=== PATIENT | female | born 1970 | race Caucasian/White ===

== ENCOUNTER 2016-08-08 15:04 | Observation (INO) | payer OTHER, SELFPAY ==
[~2016-08-08 15:04] MED LIST: ABILIFY5 MG PO; ALEVE220 M3 PO; AMITRIPTYLINE H25 M1 PO; ASPIRIN81 M1 PO; BCP; CIPRO250 M2 PO; CLONAZEPAM1 M1 PO; CLONAZEPAM2 M1 PO; ELAVIL100 MG PO; GLIPIZIDE XL10 M1 PO; GLIPIZIDE XL10 MG PO; GLUCOPHAGE1000 M1 PO; HUMALOG100 UNITS/ SC; HUMULIN 70/30 V10 ML SQ; HUMULIN R100 UNITS/ SC; KEFLEX500 M4 PO; KLONOPIN1 MG PO; LANTUS100 UNITS/ SC; LEVAQUIN250 M3 PO; LEVAQUIN500 M1 PO; LISINOPRIL-HCT1 EAC1 PO; LISINOPRIL10 M1 PO; LISINOPRIL20 MG PO; LOPRESSOR100 M1 PO; LOPRESSOR100 MG PO; LORTAB 7.5/5001 TAB PO; METFORMIN HCL500 MG PO; NORCO 5/3251 TAB PO; NOVOLIN R100 UNIT/1 SC; PROVERA10 M1 PO; PROZAC20 M2 PO; PROZAC40 M1 PO; TRAMADOL HCL100 M1 PO; TRAMADOL HCL50 MG PO; ULTRAM ER100 MG PO; ZESTORETIC 20-1 EAC2 PO; ZESTORETIC 20-1 EAC4 PO; ZOFRAN4 M2 PO
[2016-08-08] MEDS ORDERED: NOVOLOG MI100 UNITS/ SC ×2 (15:17)
[2016-08-08 15:38] LABS: BASO % 0.1 % (0-2); EOS % 1.7 % (0-7); EOSINOPHIL ABSOLUTE COUNT 0.1 tho/cmm (0.0-0.7); HCT-HEMATOCRIT 37.6 % (34.0-49.0); HGB-HEMOGLOBIN 13.1 gm/dl (12.0-15.5); IMMATURE GRANULOCYTES ABSOLUTE 0.01 tho/cmm (0-0.03); IMMATURE GRANULOCYTES PERCENT 0.1 % (0-0.3); LYMPH % 23.7 % (20-45); LYMPH ABSOLUTE COUNT 1.7 tho/cmm (0.8-4.5); MCH (MEAN CORPUSCULAR HGB) 30.5 pg (28.0-32.0); MCHC MEAN CORPUSCULAR HGB CONC 34.8 % (32.0-36.0); MCV (MEAN CELL VOLUME) 87.4 fl (82.0-96.0); MEAN PLATELET VOLUME 9.3 cmc (9.4-12.4); MONO % 9.8 % (0-12); MONOCYTE ABSOLUTE COUNT 0.7 tho/cmm (0.0-1.2); NEUTROPHIL ABSOLUTE COUNT 4.6 tho/cmm (1.6-8.0); NEUTROPHIL-AUTOMATED 4.6 tho/cmm (1.6-8.0); NEUTROPHILS % 64.6 % (40-80); PLATELET COUNT 276 tho/cmm (150-450); RED CELL DISTRIBUTION WIDTH 12.5 % (12.4-16.4); WHITE BLOOD COUNT 7.1 tho/cmm (4.0-10.0)
[2016-08-08 15:52] LABS: ANION GAP 11 mmol/L (0-20); BLOOD UREA NITROGEN 20 mg/dl (6-24); CALCIUM 8.3 mg/dl (8.5-10.5); CARBON DIOXIDE-VENOUS 24 mmol/L (22-32); CHLORIDE 110 mmol/l (96-110); CREATININE 1.28 mg/dl (0.50-1.10); GLUCOSE 214 mg/dL (70-110); SODIUM 141 mmol/L (135-145); eGFR VALUE FOR BLACK 59 mL/Min
[2016-08-08 15:53] LABS: POTASSIUM 3.7 mmol/L (3.7-5.1)
[2016-08-08] MEDS ORDERED: MEDROXYPRO150 MG/11 IM (15:59)
[2016-08-08] MEDS ORDERED: NEURONTIN300 M1 PO (16:12)
[2016-08-08] MEDS ORDERED: ABILIFY10 M1 PO (16:26)
[2016-08-08 16:33] LABS: ALBUMIN 3.6 g/dl (3.5-5.0); ALKALINE PHOSPHATASE 97 U/L (33-138); ALT/SGPT 18 U/L (12-78); BILIRUBIN,DIRECT <0.1 mg/dl (0.0-0.3); BILIRUBIN,INDIRECT 0.1 mg/dL (0.0-1.0); BILIRUBIN,TOTAL 0.2 mg/dl (0-1.5); LIPASE 172 U/L (73-393)
[2016-08-08 16:36] LABS: AST/SGOT 20 U/L (10-40)
[2016-08-09] MEDS ORDERED: LISINOPRIL-HCT1 EAC1 PO (07:23)
[2016-11-29] MEDS ORDERED: CYCLOBENZAPRINE5 M1 PO (18:44)
[2016-11-29] MEDS ORDERED: NORCO 5-325 TA1 EACH PO (18:44)
[2016-12-16] MEDS ORDERED: INVOKAMET XR 51 EAC1 PO (11:12)
[2016-12-16] MEDS ORDERED: DIABETIC MED (13:05)
[2016-12-16] MEDS ORDERED: TRULICITY0.75 MG/0. SC (13:05)
[2016-12-18] MEDS ORDERED: ZOFRAN4 M2 PO/SL (12:45)
[2016-12-20] MEDS ORDERED: TRADJENTA5 M1 PO (04:17)
[2016-12-20] MEDS ORDERED: LANTUS100 UNITS/ SC (04:18)
== END 2016-08-09 15:20 ==
LOC: EDMED 15:04 → EMR2 20:31 → CAR1 22:39
PROVIDERS: Emergency Medicine; ADMIT Internal Medicine Cardiovascular Disease
DX: R07.9 Chest pain, unspecified (principal); I10 Essential (primary) hypertension; E78.5 Hyperlipidemia, unspecified; E11.40 Type 2 diabetes mellitus with diabetic neuropathy, unspecified; Z79.4 Long term (current) use of insulin; Z79.899 Other long term (current) drug therapy; Z88.5 Allergy status to narcotic agent; Z82.49 Family history of ischemic heart disease and other diseases of the circulatory system; Z83.3 Family history of diabetes mellitus; Z90.49 Acquired absence of other specified parts of digestive tract; Z98.1 Arthrodesis status
CPT/HCPCS: A9500; G0378; J1170; J1815; J2785

== ENCOUNTER 2016-09-26 14:59 | Emergency (ER) | payer OTHER ==
[~2016-09-26 14:59] MED LIST changes: +ABILIFY10 M1 PO; +MEDROXYPRO150 MG/11 IM; +NEURONTIN300 M1 PO; +NOVOLOG MI100 UNITS/ SC
[2016-09-26] MEDS ORDERED: GLUCOPHAGE1000 M1 PO (16:00)
[2016-09-26 16:31] LABS: KETONE-BETA (WHOLE BLOOD) 0.4 mmol/L (0.0-0.6)
[2016-09-26 16:38] LABS: BASO % 0.3 % (0-2); EOS % 1.4 % (0-7); EOSINOPHIL ABSOLUTE COUNT 0.1 tho/cmm (0.0-0.7); HCT-HEMATOCRIT 37.8 % (34.0-49.0); HGB-HEMOGLOBIN 13.6 gm/dl (12.0-15.5); IMMATURE GRANULOCYTES ABSOLUTE 0.02 tho/cmm (0-0.03); IMMATURE GRANULOCYTES PERCENT 0.3 % (0-0.3); LYMPH % 22.3 % (20-45); LYMPH ABSOLUTE COUNT 1.5 tho/cmm (0.8-4.5); MCH (MEAN CORPUSCULAR HGB) 30.5 pg (28.0-32.0); MCV (MEAN CELL VOLUME) 84.8 fl (82.0-96.0); MEAN PLATELET VOLUME 9.6 cmc (9.4-12.4); MONO % 8.8 % (0-12); MONOCYTE ABSOLUTE COUNT 0.6 tho/cmm (0.0-1.2); NEUTROPHIL ABSOLUTE COUNT 4.4 tho/cmm (1.6-8.0); NEUTROPHIL-AUTOMATED 4.4 tho/cmm (1.6-8.0); NEUTROPHILS % 66.9 % (40-80); PLATELET COUNT 239 tho/cmm (150-450); RED BLOOD COUNT 4.46 mil/cmm (4.00-5.20); RED CELL DISTRIBUTION WIDTH 12.3 % (12.4-16.4); WHITE BLOOD COUNT 6.6 tho/cmm (4.0-10.0)
[2016-09-26 16:44] LABS: ANION GAP 17 mmol/L (0-20); BLOOD UREA NITROGEN 25 mg/dl (6-24); CARBON DIOXIDE-VENOUS 21 mmol/L (22-32); CHLORIDE 103 mmol/l (96-110); CREATININE 1.16 mg/dl (0.50-1.10); GLUCOSE 420 mg/dL (70-110); SODIUM 137 mmol/L (135-145); eGFR VALUE FOR BLACK 66 mL/Min
[2016-09-26 16:45] LABS: POTASSIUM 3.7 mmol/L (3.7-5.1)
[2016-09-26 17:34] LABS: URINE APPEARANCE CLEAR; URINE BILIRUBIN NEGATIVE (NEG); URINE BLOOD SMALL (NEG); URINE COLOR YELLOW; URINE GLUCOSE (UA) LARGE (NEG); URINE KETONE MODERATE (NEG); URINE LEUKOCYTE ESTERASE POSITIVE (NEG); URINE NITRITE NEGATIVE (NEG); URINE PROTEIN NEGATIVE (NEG); URINE SPECIFIC GRAVITY 1.015 (1.003-1.030)
[2016-09-26 17:41] LABS: URINE BACTERIA 1+; URINE EPITHELIAL CELLS 0-2 /[HPF] (0-10)
[2016-09-26] MEDS ORDERED: KEFLEX500 M4 PO (19:26)
[2016-11-29] MEDS ORDERED: NORCO 5-325 TA1 EACH PO (18:44)
[2016-11-29] MEDS ORDERED: CYCLOBENZAPRINE5 M1 PO (18:44)
[2016-12-16] MEDS ORDERED: INVOKAMET XR 51 EAC1 PO (11:12)
[2016-12-16] MEDS ORDERED: DIABETIC MED (13:05)
[2016-12-16] MEDS ORDERED: TRULICITY0.75 MG/0. SC (13:05)
[2016-12-18] MEDS ORDERED: ZOFRAN4 M2 PO/SL (12:45)
[2016-12-20] MEDS ORDERED: TRADJENTA5 M1 PO (04:17)
[2016-12-20] MEDS ORDERED: LANTUS100 UNITS/ SC (04:18)
[2017-02-14] MEDS ORDERED: HUMALOG100 UNITS/ SC (06:20)
[2017-02-14] MEDS ORDERED: COMPAZINE10 MG PO (09:07)
== END 2016-09-26 19:29 ==
LOC: EDMED 14:59
PROVIDERS: Emergency Medicine
DX: N39.0 Urinary tract infection, site not specified (principal); E86.0 Dehydration; E11.65 Type 2 diabetes mellitus with hyperglycemia; I10 Essential (primary) hypertension; Z79.4 Long term (current) use of insulin; Z90.49 Acquired absence of other specified parts of digestive tract
CPT/HCPCS: J1170; J1815; J2405; J7030; Q9967

== ENCOUNTER 2016-10-10 11:03 | Emergency (ER) | payer OTHER ==
[2016-10-10] MEDS ORDERED: [UNRECOGNIZED DRUG - OTHER] (11:23)
[2016-10-10 11:45] LABS: URINE BILIRUBIN MODERATE (NEG); URINE BLOOD LARGE (NEG); URINE GLUCOSE (UA) NEGATIVE (NEG); URINE KETONE LARGE (NEG); URINE LEUKOCYTE ESTERASE POSITIVE (NEG); URINE NITRITE POSITIVE (NEG); URINE PROTEIN LARGE (NEG)
[2016-10-10 11:52] LABS: URINE APPEARANCE CLOUDY; URINE COLOR ORANGE
[2016-10-10 11:59] LABS: URINE WBC FULL FIELD /[HPF] (0-5)
[2016-10-10 12:00] LABS: URINE BACTERIA 4+; URINE MUCUS 2+; URINE RBC 100-120 /[HPF] (0-5)
[2016-10-10] MEDS ORDERED: BACTRIM DS TAB1 EAC2 PO (12:43)
[2016-10-10] MEDS ORDERED: ZOFRAN ODT4 MG PO (12:43)
[2016-11-29] MEDS ORDERED: CYCLOBENZAPRINE5 M1 PO (18:44)
[2016-11-29] MEDS ORDERED: NORCO 5-325 TA1 EACH PO (18:44)
[2016-12-16] MEDS ORDERED: INVOKAMET XR 51 EAC1 PO (11:12)
[2016-12-16] MEDS ORDERED: TRULICITY0.75 MG/0. SC (13:05)
[2016-12-16] MEDS ORDERED: DIABETIC MED (13:05)
[2016-12-18] MEDS ORDERED: ZOFRAN4 M2 PO/SL (12:45)
[2016-12-20] MEDS ORDERED: TRADJENTA5 M1 PO (04:17)
[2016-12-20] MEDS ORDERED: LANTUS100 UNITS/ SC (04:18)
[2017-02-14] MEDS ORDERED: HUMALOG100 UNITS/ SC (06:20)
[2017-02-14] MEDS ORDERED: COMPAZINE10 MG PO (09:07)
== END 2016-10-10 13:00 ==
LOC: EDMED 11:03
PROVIDERS: Nurse Practitioner Family
DX: N39.0 Urinary tract infection, site not specified (principal); E11.9 Type 2 diabetes mellitus without complications; I10 Essential (primary) hypertension; Z88.5 Allergy status to narcotic agent; Z79.4 Long term (current) use of insulin
CPT/HCPCS: J1885

== ENCOUNTER 2016-10-12 09:17 | Observation (INO) | payer OTHER ==
[~2016-10-12 09:17] MED LIST changes: +BACTRIM DS TAB1 EAC2 PO; +ZOFRAN ODT4 MG PO; +[UNRECOGNIZED DRUG - OTHER]
[2016-10-12 11:16] LABS: BASO % 0.5 % (0-2); EOS % 5.3 % (0-7); EOSINOPHIL ABSOLUTE COUNT 0.3 tho/cmm (0.0-0.7); HCT-HEMATOCRIT 40.6 % (34.0-49.0); HGB-HEMOGLOBIN 14.4 gm/dl (12.0-15.5); IMMATURE GRANULOCYTES ABSOLUTE 0.03 tho/cmm (0-0.03); IMMATURE GRANULOCYTES PERCENT 0.5 % (0-0.3); LYMPH % 28.2 % (20-45); LYMPH ABSOLUTE COUNT 1.6 tho/cmm (0.8-4.5); MCH (MEAN CORPUSCULAR HGB) 30.9 pg (28.0-32.0); MCHC MEAN CORPUSCULAR HGB CONC 35.5 % (32.0-36.0); MCV (MEAN CELL VOLUME) 87.1 fl (82.0-96.0); MEAN PLATELET VOLUME 9.5 cmc (9.4-12.4); MONO % 11.8 % (0-12); MONOCYTE ABSOLUTE COUNT 0.7 tho/cmm (0.0-1.2); NEUTROPHIL ABSOLUTE COUNT 3.1 tho/cmm (1.6-8.0); NEUTROPHIL-AUTOMATED 3.1 tho/cmm (1.6-8.0); NEUTROPHILS % 53.7 % (40-80); PLATELET COUNT 284 tho/cmm (150-450); RED BLOOD COUNT 4.66 mil/cmm (4.00-5.20); RED CELL DISTRIBUTION WIDTH 12.5 % (12.4-16.4); WHITE BLOOD COUNT 5.7 tho/cmm (4.0-10.0)
[2016-10-12 11:19] LABS: PREGNANCY-SERUM NEGATIVE (NEGATIVE)
[2016-10-12 11:27] LABS: ALB/GLOB RATIO 0.8 (0.8-2.0); ALBUMIN 3.6 g/dl (3.5-5.0); ALKALINE PHOSPHATASE 88 U/L (33-138); ALT/SGPT 21 U/L (12-78); BILIRUBIN,TOTAL 0.4 mg/dl (0-1.5); BLOOD UREA NITROGEN 14 mg/dl (6-24); CALCIUM 9.3 mg/dl (8.5-10.5); CARBON DIOXIDE-VENOUS 25 mmol/L (22-32); CHLORIDE 104 mmol/l (96-110); GLUCOSE 149 mg/dL (70-110); LIPASE 99 U/L (73-393); SODIUM 137 mmol/L (135-145); eGFR VALUE FOR BLACK 64 mL/Min
[2016-10-12 11:32] LABS: ANION GAP 12 mmol/L (0-20); POTASSIUM 4.3 mmol/L (3.7-5.1)
[2016-10-12 11:33] LABS: AST/SGOT 19 U/L (10-40)
[2016-10-12 11:46] LABS: URINE BILIRUBIN NEGATIVE (NEG); URINE BLOOD LARGE (NEG); URINE GLUCOSE (UA) NEGATIVE (NEG); URINE KETONE SMALL (NEG); URINE LEUKOCYTE ESTERASE POSITIVE (NEG); URINE NITRITE NEGATIVE (NEG); URINE PROTEIN MODERATE (NEG); URINE SPECIFIC GRAVITY 1.025 (1.003-1.030)
[2016-10-12 11:50] LABS: URINE APPEARANCE CLOUDY; URINE COLOR YELLOW
[2016-10-12 11:59] LABS: URINE EPITHELIAL CELLS 20-25 /[HPF] (0-10)
[2016-10-12 12:00] LABS: URINE BACTERIA 2+; URINE RBC 40-50 /[HPF] (0-5); URINE WBC 100-120 /[HPF] (0-5)
[2016-10-12 12:01] LABS: URINE AMORPHOUS 1+; URINE MUCUS 2+
--- NOTE | 2016-10-12 21:12 | NUR ---
VIRTUAL CARE NOTE: PT. SLEEPING ASSESSMENT DEFERRED.
[2016-10-13 05:47] LABS: BASO % 0.5 % (0-2); EOS % 7.4 % (0-7); EOSINOPHIL ABSOLUTE COUNT 0.3 tho/cmm (0.0-0.7); HCT-HEMATOCRIT 33.6 % (34.0-49.0); HGB-HEMOGLOBIN 11.4 gm/dl (12.0-15.5); IMMATURE GRANULOCYTES ABSOLUTE 0.01 tho/cmm (0-0.03); IMMATURE GRANULOCYTES PERCENT 0.3 % (0-0.3); LYMPH % 31.8 % (20-45); LYMPH ABSOLUTE COUNT 1.2 tho/cmm (0.8-4.5); MCH (MEAN CORPUSCULAR HGB) 29.8 pg (28.0-32.0); MCHC MEAN CORPUSCULAR HGB CONC 33.9 % (32.0-36.0); MEAN PLATELET VOLUME 9.1 cmc (9.4-12.4); MONO % 13.2 % (0-12); MONOCYTE ABSOLUTE COUNT 0.5 tho/cmm (0.0-1.2); NEUTROPHIL ABSOLUTE COUNT 1.8 tho/cmm (1.6-8.0); NEUTROPHIL-AUTOMATED 1.8 tho/cmm (1.6-8.0); NEUTROPHILS % 46.8 % (40-80); PLATELET COUNT 227 tho/cmm (150-450); RED BLOOD COUNT 3.82 mil/cmm (4.00-5.20); RED CELL DISTRIBUTION WIDTH 12.4 % (12.4-16.4); WHITE BLOOD COUNT 3.8 tho/cmm (4.0-10.0)
[2016-10-13 06:09] LABS: ANION GAP 13 mmol/L (0-20); BLOOD UREA NITROGEN 13 mg/dl (6-24); CALCIUM 8.2 mg/dl (8.5-10.5); CARBON DIOXIDE-VENOUS 24 mmol/L (22-32); CHLORIDE 110 mmol/l (96-110); CHOLESTEROL 165 mg/dl (120-200); CREATININE 1.01 mg/dl (0.50-1.10); HDL CHOLESTEROL 35 mg/dl (40-60); LDL CHOLESTEROL 98 mg/dl (0-99); POTASSIUM 4.8 mmol/L (3.7-5.1); SODIUM 142 mmol/L (135-145); VLDL 32 mg/dl (0-30); eGFR VALUE FOR BLACK 78 mL/Min
[2016-10-13 06:13] LABS: GLUCOSE 241 mg/dL (70-110); TRIGLYCERIDES 162 mg/dl (<149)
[2016-10-13] MEDS ORDERED: LYRICA100 MG/CAP PO (13:40)
[2016-10-13] MEDS ORDERED: MULTIPLE VITAM1 EAC4 PO (13:40)
[2016-10-13] MEDS ORDERED: ABILIFY10 M1 PO (13:40)
[2016-10-13] MEDS ORDERED: LIPITOR40 M1 PO (13:41)
[2016-10-13] MEDS ORDERED: BACTRIM DS TAB1 EAC2 PO (13:42)
[2016-10-14 05:24] LABS: ANION GAP 9 mmol/L (0-20); BLOOD UREA NITROGEN 14 mg/dl (6-24); CALCIUM 8.2 mg/dl (8.5-10.5); CARBON DIOXIDE-VENOUS 27 mmol/L (22-32); CHLORIDE 109 mmol/l (96-110); CREATININE 0.89 mg/dl (0.50-1.10); GLUCOSE 121 mg/dL (70-110); SODIUM 141 mmol/L (135-145); eGFR VALUE FOR BLACK >90 mL/Min
--- NOTE | 2016-10-14 15:25 | NUR ---
VIRTUAL CARE NOTE: PT SLEEPING. ASSESSMENT DEFERRED. WILL CALL IN LATER IF SHE'S AWAKE AND WILLING TO TALK. ELECTRONIC CHART REVIEWED.
--- NOTE | 2016-10-14 19:53 | NUR ---
MARY/LEADER FLORENTINO-VISITED WITH PATIENT SHE LAY IN BED COMFORTABLE, PAIN CONTROLLED BUT STILL HAVING SOME PAIN IN HER ABD BUT HER BACK IS BETTER. SHE STARTED ON AN ORAL ABX TODAY - OMNICEF-I TOLD HER WE WOULD GIVE HER A PRINTOUT TO EDUCATE HER ON THE SIDE EFFECTS,ETC AND ONCE SHE REVIEWED IT IF SHE HAD QUESTIONS TO PLEASE CALL ME. SHE HOPES TO GO HOME TOMMORROW. HAS NO OTHER QUESTIONS OR CONCERNS AND STATES CARE IS FINE-NO ISSUES.
--- NOTE | 2016-10-15 01:13 | NUR ---
MARY NOTE-PRINTED SONIA CLINICAL EDUCATION OF PYLONEPHRITIS AND ASKED THE BEDSIDE NURSE TO GIVE TO PATIENT.
[2016-10-15] MEDS ORDERED: MIRALAX17 G2 PO (10:48)
[2016-10-15] MEDS ORDERED: CEFDINIR300 M1 PO (10:48)
[2016-10-15] MEDS ORDERED: EXCEDRIN MIGRA1 EAC3 PO (10:49)
[2016-10-15] MEDS ORDERED: STOP THE FOLLOWING: (10:53)
[2016-11-29] MEDS ORDERED: NORCO 5-325 TA1 EACH PO (18:44)
[2016-11-29] MEDS ORDERED: CYCLOBENZAPRINE5 M1 PO (18:44)
[2016-12-16] MEDS ORDERED: INVOKAMET XR 51 EAC1 PO (11:12)
[2016-12-16] MEDS ORDERED: DIABETIC MED (13:05)
[2016-12-16] MEDS ORDERED: TRULICITY0.75 MG/0. SC (13:05)
[2016-12-18] MEDS ORDERED: ZOFRAN4 M2 PO/SL (12:45)
[2016-12-20] MEDS ORDERED: TRADJENTA5 M1 PO (04:17)
[2016-12-20] MEDS ORDERED: LANTUS100 UNITS/ SC (04:18)
[2017-02-14] MEDS ORDERED: HUMALOG100 UNITS/ SC (06:20)
[2017-02-14] MEDS ORDERED: COMPAZINE10 MG PO (09:07)
== END 2016-10-15 14:25 ==
LOC: EDMED 09:17 → EMR2 18:08 → 5WD 18:12
PROVIDERS: Physician Assistant; ADMIT Family Medicine
DX: N10 Acute pyelonephritis (principal); N17.9 Acute kidney failure, unspecified; E11.40 Type 2 diabetes mellitus with diabetic neuropathy, unspecified; I10 Essential (primary) hypertension; E78.5 Hyperlipidemia, unspecified; J45.909 Unspecified asthma, uncomplicated; Z79.4 Long term (current) use of insulin; Z79.82 Long term (current) use of aspirin; Z79.84 Long term (current) use of oral hypoglycemic drugs; Z79.899 Other long term (current) drug therapy; Z88.5 Allergy status to narcotic agent; Z87.442 Personal history of urinary calculi; Z90.49 Acquired absence of other specified parts of digestive tract; Z98.1 Arthrodesis status; Z98.890 Other specified postprocedural states
CPT/HCPCS: G0378; J0696; J1170; J1650; J1815; J1885; J2405; J7030

== ENCOUNTER 2016-10-22 18:12 | Emergency (ER) | payer OTHER ==
[~2016-10-22 18:12] MED LIST changes: +CEFDINIR300 M1 PO; +EXCEDRIN MIGRA1 EAC3 PO; +LIPITOR40 M1 PO; +LYRICA100 MG/CAP PO; +MIRALAX17 G2 PO; +MULTIPLE VITAM1 EAC4 PO; +STOP THE FOLLOWING:
[2016-10-22 18:30] LABS: URINE BILIRUBIN NEGATIVE (NEG); URINE BLOOD LARGE (NEG); URINE GLUCOSE (UA) LARGE (NEG); URINE KETONE NEGATIVE (NEG); URINE LEUKOCYTE ESTERASE POSITIVE (NEG); URINE NITRITE NEGATIVE (NEG); URINE PH 6.5 (5.0-8.0); URINE PROTEIN LARGE (NEG); URINE SPECIFIC GRAVITY 1.015 (1.003-1.030)
[2016-10-22 18:39] LABS: URINE APPEARANCE CLOUDY; URINE COLOR PINK
[2016-10-22 18:41] LABS: URINE EPITHELIAL CELLS 0 /[HPF] (0-10); URINE WBC 20-30 /[HPF] (0-5)
[2016-10-22 20:28] LABS: BASO % 0.2 % (0-2); EOS % 0.8 % (0-7); EOSINOPHIL ABSOLUTE COUNT 0.1 tho/cmm (0.0-0.7); HCT-HEMATOCRIT 37.1 % (34.0-49.0); HGB-HEMOGLOBIN 12.8 gm/dl (12.0-15.5); IMMATURE GRANULOCYTES ABSOLUTE 0.04 tho/cmm (0-0.03); IMMATURE GRANULOCYTES PERCENT 0.3 % (0-0.3); LYMPH % 12.5 % (20-45); LYMPH ABSOLUTE COUNT 1.5 tho/cmm (0.8-4.5); MCH (MEAN CORPUSCULAR HGB) 30.1 pg (28.0-32.0); MCHC MEAN CORPUSCULAR HGB CONC 34.5 % (32.0-36.0); MCV (MEAN CELL VOLUME) 87.3 fl (82.0-96.0); MEAN PLATELET VOLUME 9.3 cmc (9.4-12.4); MONO % 5.7 % (0-12); MONOCYTE ABSOLUTE COUNT 0.7 tho/cmm (0.0-1.2); NEUTROPHIL ABSOLUTE COUNT 9.7 tho/cmm (1.6-8.0); NEUTROPHIL-AUTOMATED 9.7 tho/cmm (1.6-8.0); NEUTROPHILS % 80.5 % (40-80); PLATELET COUNT 227 tho/cmm (150-450); RED BLOOD COUNT 4.25 mil/cmm (4.00-5.20); RED CELL DISTRIBUTION WIDTH 12.4 % (12.4-16.4)
[2016-10-22 20:43] LABS: ANION GAP 13 mmol/L (0-20); BLOOD UREA NITROGEN 20 mg/dl (6-24); CARBON DIOXIDE-VENOUS 25 mmol/L (22-32); CHLORIDE 100 mmol/l (96-110); GLUCOSE 348 mg/dL (70-110); POTASSIUM 3.4 mmol/L (3.7-5.1); SODIUM 135 mmol/L (135-145); eGFR VALUE FOR BLACK 79 mL/Min
[2016-10-22] MEDS ORDERED: TRAMADOL HCL50 M2 PO (21:14)
[2016-10-22] MEDS ORDERED: ZOFRAN ODT4 MG PO (21:14)
[2016-10-22] MEDS ORDERED: BACTRIM DS TAB1 EAC2 PO (21:16)
[2016-11-29] MEDS ORDERED: NORCO 5-325 TA1 EACH PO (18:44)
[2016-11-29] MEDS ORDERED: CYCLOBENZAPRINE5 M1 PO (18:44)
[2016-12-16] MEDS ORDERED: INVOKAMET XR 51 EAC1 PO (11:12)
[2016-12-16] MEDS ORDERED: DIABETIC MED (13:05)
[2016-12-16] MEDS ORDERED: TRULICITY0.75 MG/0. SC (13:05)
[2016-12-18] MEDS ORDERED: ZOFRAN4 M2 PO/SL (12:45)
[2016-12-20] MEDS ORDERED: TRADJENTA5 M1 PO (04:17)
[2016-12-20] MEDS ORDERED: LANTUS100 UNITS/ SC (04:18)
== END 2016-10-22 21:33 ==
LOC: EDMED 18:12
PROVIDERS: Emergency Medicine
DX: N39.0 Urinary tract infection, site not specified (principal); E11.9 Type 2 diabetes mellitus without complications; I10 Essential (primary) hypertension; Z87.442 Personal history of urinary calculi; Z79.82 Long term (current) use of aspirin; Z79.84 Long term (current) use of oral hypoglycemic drugs; Z79.899 Other long term (current) drug therapy
CPT/HCPCS: J1170; J1885; J2543; J7030